=== PATIENT | male | born 1990 | race Caucasian/White ===

== ENCOUNTER 2017-03-29 20:34 | Emergency (ER) | payer SELFPAY ==
[~2017-03-29] VITALS: Ht 162.6 cm; Wt 58.6 kg
[2017-03-29 20:57] VITALS: TEMP 36.9; Ht 162.6 cm; Wt 58.6 kg
[2017-03-29] MEDS ORDERED: CYCL10TA6 PO (22:14)
--- NOTE | 2017-03-29 22:16 | EMERGENCY ROOM VISIT NOTE ---
History First contact with patient: 21:25 Chief Complaint: BACK PAIN Stated Complaint: BACK PAIN History of Present Illness The patient is a 27 year old male who presents to the Emergency Room with complaints of chronic low back pain for the last several years. The patient denies any injury. The pain occasionally shoots up towards his mid back. He denies any pain, numbness or tingling in his extremities. He denies any weakness. No numbness or tingling into his groin. No urinary or bowel incontinence. He has tried ibuprofen with minimal relief of the pain. The patient has never seen a primary care doctor for this problem. Review of Systems 6 system review negative. Please see pertinent positives in the history of present illness section. Past Medical/Surgical History Medical Problems: (1) Corneal abrasion (2) Corneal abrasion (3) No Known Active Medical Problems Family History Hypertension Social History Smoking Status: Never Smoker Alcohol Use: none Drug Use: none Marital Status: in relationship Housing Status: lives with significant other Occupation Status: employed Current/Historical Medications Scheduled Cyclobenzaprine Hcl (Flexeril), 10 MG PO TID Physical Exam Vital Signs Date Time Temp Pulse Resp B/P (MAP) Pulse Ox O2 Delivery O2 Flow Rate FiO2 03/29/17 20:57 36.9 97 17 128/76 100 Room Air Physical Exam VITALS: Vitals are noted on the nurse's note and reviewed by myself. Vital signs stable. GENERAL: 27-year-old male, in no acute distress, nondiaphoretic, well-developed well-nourished. SKIN: The skin was without rashes, erythema, edema, or bruising. HEAD: Normocephalic atraumatic. NECK: Supple without nuchal rigidity. Cervical spine is nontender. No JVD. HEART: Regular rate and rhythm without murmurs gallops or rubs. LUNGS: Clear to auscultation bilaterally without wheezes, rales or rhonchi. No accessory muscle use. MUSCULOSKELETAL: Mild tenderness to palpation over the lumbar spinous processes. There is a muscle spasm present of the paraspinous muscle in the lumbar region. No tenderness over the SI joint bilaterally. No muscle atrophy , erythema, or edema noted. Full range of motion in all extremities. No tenderness to palpation. Normal gait. Strength 5/5 throughout. NEURO: Patient was alert and oriented to person place and time. Normal sensation to touch. No focal neurological deficits. Medical Decision & Procedures ER Provider Diagnostic Interpretation: Lumbar spine x-rays IMPRESSION: 1. No fractures or subluxations identified 2. No destructive lesions identified Electronically signed by: Yogesh Mendoza M.D. 03/29/2017 10:21 PM Dictated Date/Time: 03/29/2017 10:21 PM The status of this report is Signed. Draft = Not yet reviewed or approved by Radiologist. Signed = Reviewed and approved by Radiologist. ED Course The patient was seen and examined He declined pain medication Imaging was performed and reviewed The findings were discussed with the patient Discharge instructions were reviewed, and he was discharged in good condition Medical Decision Differential diagnosis: Spine fracture, ligamentous injury, subluxation, spondylolisthesis, spondylosis, herniated disc, contusion, muscle spasm This patient is a 27-year-old male that presents to the emergency department with acute on chronic back pain. On exam, he did have a muscle spasm in the lumbar region. This is likely the source of his pain. Imaging was negative for any acute fracture. He was encouraged to take NSAIDs. He was also given a muscle relaxant. He will apply heat to the area and rest. He was advised to follow-up with primary care physician for further evaluation. He was in agreement with this plan. This chart was completed in part utilizing [employer] Speech Voice Recognition software. Attempts were made to minimize the grammatical errors, random word insertions, pronoun errors and incomplete sentences. Any formal questions or concerns about the content, text or information contained within the body of this dictation should be directly addressed to the provider for clarification. Impression Primary Impression: Chronic low back pain Departure Information Dispostion Home / Self-Care Condition GOOD Prescriptions Cyclobenzaprine Hcl (FLEXERIL) 10 Mg Tab 10 MG PO TID for Muscle Spasms, #20 TAB Prov: Kiersten Naik PA-C 03/29/17 Referrals No Doctor, Assigned (PCP) Patient Instructions Back Pain Relieve, My [facility] Additional Instructions Please rest. No strenuous activity until you're back is feeling better. Ibuprofen 600 mg every 6 hours as needed for pain. Flexeril every 8 hours as needed for muscle spasm/pain. Please also do not drink alcohol or drive while taking this medication. Please apply a heating pad or soak in a warm tub 2-3 times daily for the next several days. Please follow-up with your primary care physician for further workup and treatment. Call tomorrow morning for a follow-up appointment. Do not hesitate to return to the emergency department with any new, worsening or concerning symptoms
--- NOTE | 2017-03-29 22:23 | DIAGNOSTIC IMAGING REPORT ---
L-SPINE MIN 4 VIEWS ROUTINE CLINICAL HISTORY: Chronic low back pain COMPARISON STUDY: No previous studies for comparison. FINDINGS: There is a mild spinal curvature convex to the left. No fractures or subluxations are visualized. No destructive lesions are visualized on conventional radiographic imaging IMPRESSION: 1. No fractures or subluxations identified 2. No destructive lesions identified Electronically signed by: Yogesh Mendoza M.D. 03/29/2017 10:21 PM Dictated Date/Time: 03/29/2017 10:21 PM
[2017-03-29 23:04] VITALS: BP 138/72; PULSE 94; O2SAT 98
== END 2017-03-29 23:06 | disposition home or self-care (01) ==
LOC: C.EDB 20:36 → C.EDD 23:06
DX: M54.5 Low back pain (principal); G89.29 Other chronic pain; Z82.49 Family history of ischemic heart disease and other diseases of the circulatory system

== ENCOUNTER 2017-04-21 08:40 | Emergency (ER) | payer SELFPAY ==
[~2017-04-21] VITALS: Ht 162.6 cm; Wt 57.0 kg
[2017-04-21 08:45] VITALS: Ht 162.6 cm; Wt 57.0 kg
[2017-04-21] MEDS ORDERED: DIPHTHERIA/TETANUS/PERTUSSIS 0.5 ML SYR/VIAL IM. ONE (10:15)
--- NOTE | 2017-04-21 10:44 | DIAGNOSTIC IMAGING REPORT ---
HEAD WITHOUT CONTRAST (CT) CLINICAL HISTORY: 27 years-old Male presenting with headache, superficial injury to the back of the head. TECHNIQUE: Multidetector CT imaging of the head was performed without the use of intravenous contrast. IV contrast: None. A dose lowering technique was used consistent with the principles of ALARA (as low as reasonably achievable). COMPARISON: None. CT DOSE (mGy.cm): The estimated cumulative dose is 638.56 mGycm. FINDINGS: [employer] Shop [employer]man topogram: Unremarkable. Ventricles and sulci normal in size. Brain parenchyma normal in appearance with preserved gomez-white differentiation. No mass effect or midline shift. No hemorrhage or acute territorial infarct. No extra-axial fluid collection. Paranasal sinuses and mastoid air cells clear. Calvarium intact. A marker is in place in the midline a subtle region at the site of reported superficial injury. No significant abnormality is noted apart from trace skin thickening on CT. No subjacent osseous injury. IMPRESSION: 1. No acute intracranial abnormality. Electronically signed by: Js Nieto M.D. 04/21/2017 10:43 AM Dictated Date/Time: 04/21/2017 10:40 AM
[2017-04-21] MEDS ORDERED: DOXYCYCLINE HYCLATE 100 MG CAP PO ONE (12:45)
[2017-04-21 12:46] VITALS: BP 120/86; PULSE 77; TEMP 36.6; O2SAT 98
[2017-04-21] MEDS ORDERED: DOXY100C76 PO (12:48)
--- NOTE | 2017-04-21 16:39 | EMERGENCY ROOM VISIT NOTE ---
History Report prepared by Johana: Guanaco Dupree Under the Supervision of: Dr. David Stokes M.D. First contact with patient: 10:00 Chief Complaint: SKIN PROBLEM Stated Complaint: CUT ON HEAD, HEADACHES History of Present Illness The patient is a 27 year old male who presents to the Emergency Room with complaints of skin wound to the back of the head that began several weeks ago. He is unsure of how the area became the way it is. He was seen in the ER about 2 weeks ago and was treated with Motrin and Bacitracin. He has been using the Bacitracin and an antibacterial ointment, but it has not been helping his symptoms. He is experiencing a burning sensation to the area with intermittent fluid production. He states that whenever the skin problem appeared, he began to experience headaches. He notes that he is outside a lot and has possible tick exposures. He is unsure if his Tetanus is up to date. Pt denies LOC, fevers , chills, diaphoresis, visual changes, neck pain, chest pain, breathing difficulties, nausea, vomiting, abdominal pain, back pain, melena, hematochezia , urinary symptoms, numbness, weakness, lymphadenopathy, rash, or other complaints. Source of History: patient Onset: several weeks ago Position: head Symptom Intensity: mild Quality: other (Skin wound) Timing: constant Associated Symptoms: + headache Note: He is experiencing a burning sensation to the area with some fluid production. Review of Systems See HPI for pertinent positives and negatives. A total of ten systems were reviewed and were otherwise negative. Past Medical & Surgical Medical Problems: (1) Corneal abrasion (2) Corneal abrasion (3) No Known Active Medical Problems Family History Hypertension Social History Smoking Status: Never Smoker Alcohol Use: none Drug Use: none Marital Status: in relationship Housing Status: lives with significant other Occupation Status: employed Current/Historical Medications Scheduled Doxycycline Monohydrate (Monodox), 100 MG PO BID Allergies Coded Allergies: Tramadol (Verified Allergy, Unknown, "get sick", 04/21/17) Physical Exam Vital Signs Date Time Temp Pulse Resp B/P (MAP) Pulse Ox O2 Delivery O2 Flow Rate FiO2 04/21/17 12:46 36.6 77 18 120/86 98 Room Air 04/21/17 11:15 69 18 118/70 99 Room Air 04/21/17 08:45 36.8 74 16 135/84 100 Physical Exam GENERAL: Awake, alert, well-appearing, in no distress HENT: Normocephalic, atraumatic. There is a scabbed over lesion to the occiput. No active bleeding or discharge. No abscess. Oropharynx unremarkable. EYES: Normal conjunctiva. Sclera non-icteric. NECK: Supple. No nuchal rigidity. FROM. No JVD. RESPIRATORY: Clear to auscultation. CARDIAC: Regular rate, normal rhythm. Extremities warm and well perfused. Pulses equal. ABDOMEN: Soft, non-distended. No tenderness to palpation. No rebound or guarding. No masses. RECTAL: Deferred. MUSCULOSKELETAL: Chest examination reveals no tenderness. The back is symmetrical on inspection without obvious abnormality. There is no CVA tenderness to palpation. No joint edema. LOWER EXTREMITIES: Calves are equal size bilaterally and non-tender. No edema. No discoloration. NEURO: Normal sensorium. No sensory or motor deficits noted. SKIN: No rash or jaundice noted. Medical Decision & Procedures ER Provider Diagnostic Interpretation: Radiology results as stated below per my review and radiologist interpretation: HEAD WITHOUT CONTRAST (CT) CLINICAL HISTORY: 27 years-old Male presenting with headache, superficial injury to the back of the head. TECHNIQUE: Multidetector CT imaging of the head was performed without the use of intravenous contrast. IV contrast: None. A dose lowering technique was used consistent with the principles of ALARA (as low as reasonably achievable). COMPARISON: None. CT DOSE (mGy.cm): The estimated cumulative dose is 638.56 mGycm. FINDINGS: Sign Fabricator topogram: Unremarkable. Ventricles and sulci normal in size. Brain parenchyma normal in appearance with preserved gomez-white differentiation. No mass effect or midline shift. No hemorrhage or acute territorial infarct. No extra-axial fluid collection. Paranasal sinuses and mastoid air cells clear. Calvarium intact. A marker is in place in the midline a subtle region at the site of reported superficial injury. No significant abnormality is noted apart from trace skin thickening on CT. No subjacent osseous injury. IMPRESSION: 1. No acute intracranial abnormality. Electronically signed by: Js Nieto M.D. 04/21/2017 10:43 AM Dictated Date/Time: 04/21/2017 10:40 AM Laboratory Results Test 04/21/17 10:20 Lyme Disease IgG Antibody POS (NEG) Laboratory results reviewed by me Medications Administered Medications (Trade) Dose Ordered Sig/Richard Route Start Time Stop Time Status Last Admin Dose Admin Diphtheria/ Pertussis/Tetanus Vacc (Adacel Inj) 0.5 ml ONCE ONCE IM. 04/21/17 10:15 04/21/17 10:16 DC 04/21/17 11:13 0.5 ML Doxycycline Hyclate (Vibramycin Cap) 100 mg ONE ONCE PO 04/21/17 12:45 04/21/17 12:46 DC 04/21/17 12:46 100 MG ED Course 1000: The patient was evaluated in room B10. A complete history and physical exam was performed. 1015: Ordered Adacel Inj 0.5 ml IM 1245: Ordered Vibramycin Cap 100 mg PO 1310: I reevaluated the patient. Discussed results and discharge instructions: He verbalized understanding and agreement. The patient is ready for discharge. Medical Decision Triage Nursing notes reviewed. The patient's presentation and history were concerning for posterior occipital skin lesion and headaches. The patient also notes fatigue. 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 Differential includes tinea capitis, abscess, cellulitis, contact dermatitis, Lyme disease, as well as others. The patient's posterior scalp examination revealed a small chronic appearing wound. There is no drainage. No abscess. He has had not had any relief with topical antibiotics. I did discuss trying topical Lotrimin as this could be a small area of tinea capitis with secondary excoriation. No obvious foreign bodies. The patient notes headaches. CT was unremarkable. He has no meningeal findings. He is afebrile. No tumors. The patient had a Lyme screen performed and this was positive. Doxycycline was initiated. Prescription was written. The pharmacist did meet with the patient to provide some cost assistance for prescription management. The patient is going to be following up for outpatient primary care establishment. He worsens in any way in the meantime he will come back here. By the evaluation outlined above other emergent etiologies such as those listed in the differential, as well as others, were deemed relatively unlikely. The patient was educated about the findings as listed above. All questions were answered and the patient was pleased with the treatment. Return instructions were outlined and the patient was discharged in stable condition. Medication Reconcilliation Current Medication List: was personally reviewed by me Blood Pressure Screening Patient's blood pressure: Normal blood pressure Blood pressure disposition: Did not require urgent referral Impression Primary Impression: Scalp wound Additional Impression: Lyme disease Scribe Attestation The scribe's documentation has been prepared under my direction and personally reviewed by me in its entirety. I confirm that the note above accurately reflects all work, treatment, procedures, and medical decision making performed by me. Departure Information Dispostion Home / Self-Care Prescriptions Doxycycline Monohydrate (Monodox) 100 Mg Cap 100 MG PO BID for 21 Days, #42 CAP Prov: David Stokes MD 04/21/17 Referrals No Doctor, Assigned (PCP) Forms HOME CARE DOCUMENTATION FORM, IMPORTANT VISIT INFORMATION, WORK / SCHOOL INSTRUCTIONS Patient Instructions My [facility] Additional Instructions Clotrimazole(Lotrimin) lotion to the spot on your scalp twice a day for 10 days. This is [id number]. Doxycycline 100mg: Take one pill twice daily for 21 days for your infection. Take with food, but avoid dairy. Avoid prolonged sun exposure since this medication makes you temporarily more susceptible to sunburns. All antibiotics can cause diarrhea. If this occurs and you feel worse or it does not resolve in 1-2 days follow up with your doctor or return to the Emergency Department as this could be signs of serious underlying problems. Any medication can cause an allergic reaction, stop the pills immediately and return to the ER for rash, hives, breathing difficulties, or swelling. Ibuprofen(Motrin, Advil) may be used for fever or pain. Use 600mg every six hours as needed. Take with food. Avoid using more than 2400mg in a 24 hour period. Do not use 2400mg per day for more than three consecutive days without physician direction. Prolonged inappropriate use can lead to stomach upset or ulcers. (AND/OR) Acetaminophen(Tylenol) may be used for fever or pain. Use 1000mg every six hours as needed. Avoid using more than 4000mg in a 24 hour period. Warm compresses to the affected area 4 times daily for 15-20 minutes. Rest and drink plenty of fluids. Continue current medications. Return to the ER for severe pain, persistent fevers, spreading redness, or any worsening of your condition. Follow up with a primary physician after you clarify your insurance issue. Problem Qualifiers
== END 2017-04-21 13:18 | disposition home or self-care (01) ==
LOC: C.EDB 08:41
DX: S01.00XA Unspecified open wound of scalp, initial encounter (principal); R51 Headache; X58.XXXA Exposure to other specified factors, initial encounter; A69.20 Lyme disease, unspecified

== ENCOUNTER 2017-06-04 23:31 | Emergency (ER) | payer OTHER ==
[~2017-06-04] VITALS: Ht 170.2 cm; Wt 62.0 kg
[2017-06-04 23:52] VITALS: TEMP 36.8; Ht 170.2 cm; Wt 62.0 kg
[2017-06-05 00:38] LABS: HEMATOCRIT 38.3 % (42-52); HEMOGLOBIN 13.2 g/dL (14.0-18.0); MEAN CELL VOLUME 89.7 fL (80-100); MEAN CORPUSCULAR HEMOGLOBIN 30.9 pg (25-34); MEAN CORPUSCULAR HGB CONC 34.5 g/dl (32-36); MEAN PLATELET VOLUME 9.3 fL (7.4-10.4); PLATELET COUNT 233 K/uL (130-400); RED CELL DISTRIBUTION WIDTH CV 12.9 % (11.5-14.5); RED CELL DISTRIBUTION WIDTH SD 41.8 fL (36.4-46.3); WHITE BLOOD COUNT 4.53 K/uL (4.8-10.8)
[2017-06-05] MEDS ORDERED: [UNRECOGNIZED DRUG - REMARK] PO (00:39)
[2017-06-05 00:58] LABS: ALBUMIN 4.2 gm/dl (3.4-5.0); CALCIUM 8.7 mg/dl (8.5-10.1); CREATININE 1.23 mg/dl (0.60-1.40); POTASSIUM 3.6 mmol/L (3.5-5.1)
[2017-06-05 01:01] LABS: TOTAL PROTEIN 7.3 gm/dl (6.4-8.2)
--- NOTE | 2017-06-05 05:14 | EMERGENCY ROOM VISIT NOTE ---
History Report prepared by Johana: Alice Hoskins Under the Supervision of: Dr. Marika Ortega D.O. First contact with patient: 23:36 Chief Complaint: MENTAL HEALTH EVALUATION Stated Complaint: MENTAL HEALTH ASSESSMENT History of Present Illness The patient is a 27 year old male who presents to the Emergency Room for a mental health evaluation. The patient states that he was working on his car this evening and started having feelings of wanting to "give up" and "not go on. " He denies wanting to hurt himself. He states that things were not working well to fix his car either. He states that he has had a history of depression and anxiety. He states that he was treated years ago for it. He reports that he was on a different medication at the time. He reports that he takes something now, but is unsure what it is. He reports that it hasn't felt like it has helped. He states that he did not take it this morning. He notes that it is prescribed by his family doctor. The patient denies ever seeing a therapist or psychiatrist. The patient states that he also gets down because he sees his daughter about once a month. He states that it is just when he can get a hold of her grandmother and he would see her more if he could. 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 The patient notes that his parents are very supportive. He notes a history of Lyme disease and muscle spasms. He states that he feel fatigued often from the Lyme disease and is unsure what the muscle spasms are from. The patient denies alcohol use, drug use, and eating/drinking abnormally. Source of History: patient Onset: tonight Position: other (global) Quality: other (mental health) Timing: other (episode) Associated Symptoms: + fatigue Note: The patient complains of feeling of wanting to "give up" and "not go on." The patient denies eating/drinking abnormally. Review of Systems See HPI for pertinent positives & negatives. A total of 10 systems reviewed and were otherwise negative. Past Medical & Surgical Medical Problems: (1) Anxiety (2) Corneal abrasion (3) Corneal abrasion (4) Depression (5) Muscle spasm Family History Hypertension Social History Smoking Status: Never Smoker Alcohol Use: none Drug Use: none Marital Status: in relationship Housing Status: lives with family Occupation Status: employed Current/Historical Medications Unable to Obtain Active Prescriptions or Reported Meds Allergies Coded Allergies: Tramadol (Verified Allergy, Unknown, "get sick", 04/21/17) Physical Exam Vital Signs Date Time Temp Pulse Resp B/P (MAP) Pulse Ox O2 Delivery O2 Flow Rate FiO2 06/05/17 04:55 70 16 112/79 99 Room Air 06/04/17 23:52 36.8 88 20 140/87 99 Room Air Physical Exam HEENT: Head - normocephalic and atraumatic Pupils are equal, round, and reactive to light. Extraocular eye muscles are intact, and sclera are anicteric. Nose - moist nasal mucosa without discharge. Mouth - moist buccal mucosa. Oropharynx is nonerythematous and there is no tonsillar exudate or edema noted. Neck: Supple; no JVD, nuchal rigidity, cervical lymphadenopathy. Heart: Regular rate and rhythm. There is a normal S1 and S2 with no murmurs, clicks, or gallops appreciated. Lungs: Clear to auscultation bilaterally with no wheezes, rales, or rhonchi. Abdomen: Soft, completely nontender, nondistended, with good bowel sounds. There are no palpable pulsatile masses or hepatosplenomegaly. There is no guarding, rigidity, or rebound noted. Extremities: No evidence of cyanosis, clubbing, or edema. There are easily palpable peripheral pulses. Skin: warm and dry with good turgor and no rashes. Psych: Appears depressed. Has flat affect. Describes not wanting to go on, but is not actively suicidal. Medical Decision & Procedures Laboratory Results 06/05/17 00:16 06/05/17 00:16 Test 06/04/17 23:47 06/05/17 00:16 Urine Color DK YELLOW Urine Appearance CLEAR (CLEAR) Urine pH 5.5 (4.5-7.5) Urine Specific [place] 1.035 (1.000-1.030) Urine Protein NEG (NEG) Urine Glucose (UA) NEG (NEG) Urine Ketones TRACE (NEG) Urine Occult Blood NEG (NEG) Urine Nitrite NEG (NEG) Urine Bilirubin NEG (NEG) Urine Urobilinogen NEG (NEG) Urine Leukocyte Esterase NEG (NEG) Urine Opiates Screen NEG (NEG) Urine Methadone, Qualitative NEG (NEG) Urine Barbiturates NEG (NEG) Urine Phencyclidine (PCP) Level NEG (NEG) Ur Amphetamine/Methamphetamine NEG (NEG) MDMA (Ecstasy) Screen NEG (NEG) Urine Benzodiazepines Screen NEG (NEG) Urine Cocaine Metabolite NEG (NEG) Urine Marijuana (THC) NEG (NEG) Red Blood Count 4.27 M/uL (4.7-6.1) Mean Corpuscular Volume 89.7 fL (80-100) Mean Corpuscular Hemoglobin 30.9 pg (25-34) Mean Corpuscular Hemoglobin Concent 34.5 g/dl (32-36) RDW Standard Deviation 41.8 fL (36.4-46.3) RDW Coefficient of Variation 12.9 % (11.5-14.5) Mean Platelet Volume 9.3 fL (7.4-10.4) Anion Gap 5.0 mmol/L (3-11) Est Creatinine Clear Calc Drug Dose 79.8 ml/min Estimated GFR () 93.3 Estimated GFR (Non- 80.5 BUN/Creatinine Ratio 18.4 (10-20) Calcium Level 8.7 mg/dl (8.5-10.1) Total Bilirubin 0.6 mg/dl (0.2-1) Direct Bilirubin 0.1 mg/dl (0-0.2) Aspartate Amino Transf (AST/SGOT) 18 U/L (15-37) Alanine Aminotransferase (ALT/SGPT) 17 U/L (12-78) Alkaline Phosphatase 65 U/L (45-117) Total Protein 7.3 gm/dl (6.4-8.2) Albumin 4.2 gm/dl (3.4-5.0) Salicylates Level < 1.7 mg/dl (2.8-20) Acetaminophen Level < 2 ug/ml (10-30) Ethyl Alcohol mg/dL < 3.0 mg/dl (0-3) Laboratory results per my review. ED Course 2351: Past medical records reviewed. The patient was evaluated in room A5. A complete history and physical exam was performed. Labs were drawn as above. 0136: The patient was more formally evaluated by the psychiatric casework manager here in the emergency department. The patient is requesting inpatient care and didn't think he could keep himself safe if he went home. 0407: The patient was accepted to the [facility] and will be transferred there at 8 AM. Medical Decision The patient is a 27 year old male who presents to the Emergency Room for a mental health evaluation. Differential diagnoses include mood disorder, thought disorder, anxiety, suicidal ideation. LABS: White count 4.5 Hemoglobin 13.2 Normal renal function Normal glucose Normal LFTs Negative alcohol and tox screen Negative Tylenol and Aspirin Urine positive for trace ketones This is a 27-year-old male patient with history of depression and anxiety who presents to the emergency department with feelings as if he cannot go on in life. Initially, the patient had no specific suicidal thoughts but once he spoke with the psychiatric casework manager, the patient explained that he does not feel that he could go home and keep himself safe. At that point, the patient was evaluated more completely for bed placement and inpatient psychiatric care. He was accepted at the [facility] and will be transferred there at 8 AM this morning. The patient does take routine morning medications but denies knowing the name of them. Medication Reconcilliation Current Medication List: was personally reviewed by me Blood Pressure Screening Patient's blood pressure: Normal blood pressure Blood pressure disposition: Did not require urgent referral Impression Primary Impression: Suicidal ideation Scribe Attestation The scribe's documentation has been prepared under my direction and personally reviewed by me in its entirety. I confirm that the note above accurately reflects all work, treatment, procedures, and medical decision making performed by me. Departure Information Dispostion Mental Health Acute Care Prescriptions Unable to Obtain Active Prescriptions or Reported Meds Referrals No Doctor, Assigned (PCP) Patient Instructions My [facility]
[2017-06-05 09:20] VITALS: BP 114/74; PULSE 68; O2SAT 99
[2017-06-05] MEDS ORDERED: BENZONATATE 100MG CAP PO ONE (09:54)
[2017-06-05] MEDS ORDERED: NICOTINE 21 MG/24 HR TDSY ONE (09:57)
[2017-06-05] MEDS ORDERED: COUGH DROP (SUGAR FREE) LOZ 24 LOZ/1 BOX LOZ ONE (09:58)
== END 2017-06-05 09:17 ==
LOC: EDBD 23:31 → C.EDA 23:32
DX: R45.851 Suicidal ideations (principal); F41.8 Other specified anxiety disorders; Z82.49 Family history of ischemic heart disease and other diseases of the circulatory system; Z88.6 Allergy status to analgesic agent